=== PATIENT | female | born 1965 | race Two or more races ===

== ENCOUNTER 2017-11-09 10:13 | Inpatient (IN) | payer OTHER ==
[~2017-11-09] VITALS: Ht 160 cm; Wt 88.0 kg
--- NOTE | 2017-11-09 13:48 | NUR ---
REPORT FROM CATALINO BARAJAS E.D. AT THIS TIME.
--- NOTE | 2017-11-09 14:00 | NUR ---
PT ARRIVED TO ROOM 112. SHE ALERT AND ORIENTED UNABLE TO SPEAK CLEARLY, HOWEVER IS ABLE TO VERBALIZE ANSWERS APPROPRIATELY. PT REPORTS NO PAIN. PT UNABLE TO COUGH AND CLEAR SECREATIONS. SUCTION AT BEDSIDE TO ASSIST
--- NOTE | 2017-11-09 16:17 | NUR ---
PT EDUCATION PACKET GIVEN AND WENT OVER WITH DAUGHTER BRUCE IN PT ROOM. FAMILY ASKED STAFF TO TRY TO RESTRICT VISITORS LIST OF ACCEPTABLE VISITORS ON CHART. FAMILY IS CONCERNED ABOUT VISITORS NOT ON THE LIST MIGHT TRY TO BRING ILLEGAL DRUGS INTO PT. SIGN PLACED ON PT DOOR FOR ALL VISITORS TO CHECK IN AT NURSES STATION. PT RESTING QUIETLY IN BED AT THIS TIME. RR 20 BPM OXYGEN SATURATION 95% NO DISTRESS NOTED PT APPEARS TO BE SLEEPING.
--- NOTE | 2017-11-09 17:41 | NUR ---
PT ADMITTED FROM E.D. AT 1400 THIS AFTERNOON. SHE IS VERY WEAK OF LEFT SIDE. TWO PERSON TRANSFERED FROM [facility] TO HOSPITAL BED, YINAELLEN, WOULD SUGGEST THREE PERSON OR ZENAIDA. PT HAS FELIZ SHE IS ALERT AND ORIENTED DIFFICULTY SPEAKING BUT UNDERSTANDABLE. SHE HAS HAD MULTIPLE FAMILY MEMBERS VISITNG AND HAS A LIST PROVIDED BY DAUGHTER BRUCE OF THE PEOPLE THEY WOULD LIKE TO BE ALLOWED TO VISIT DUE TO HYSTORY OF DRUG USE. PT IS COOPERATIVE WITH CARE.
--- NOTE | 2017-11-09 18:33 | NUR ---
ACCU CHECK AT THIS TIME, DUE TO PT REPORTS FEELING TO HOT. DIAPHORETIC MILDLY. ACCUCHECK 289 READING.
--- NOTE | 2017-11-09 19:10 | NUR ---
BEDSIDE REPORT RECEIVED FROM JENN BIGGS. PT AWAKENS WITH FAMILY VOICE, RNS ENTERING ROOM. HOB ELEVATED. IVF INFUSING WNL. SPO2 96% ON RA, HR 73. CONT PULSE OX ON. PT ABLE TO LIFT LEFT LEG, MOVE FINGERS ON LEFT HAND, WEAKNESS NOTED. PT SPEECH GARBLED. CALL LIGHT IN REACH. FAMILY IN ROOM.
--- NOTE | 2017-11-09 20:48 | NUR ---
PT'S MOTHER LEFT FOR THE EVENING AND ASKED THAT HER HEAT IS TURNED UP IN THE ROOM. ADVISED HER THAT I WOULD TURN IT UP AND LET HER RN KNOW THAT SHE LEFT AND WOULD LIKE TO GET READY FOR BED.
--- NOTE | 2017-11-09 21:30 | NUR ---
PT ASSESSMENT COMPLETE. CBG 172, SS INSULIN ADMINISTERED. RT MANUEL IN ROOM, PT ABLE TO USE IS WITH PROMPTING TO 750 ML BEST EFFORT. LUNGS COARSE THROUGHOUT ALL LOBES, PT COUGHING AFTER SUCTION BY RT, CLEAR DISCHARGE SUCTIONED. SATURATIONS WNL, CONT. PULSE OX IN PLACE. HOB ELEVATED. FELIZ CARE COMPLETE, FELIZ DRAINING DARK YELLOW URINE. PT ASSISTED TO REPOSITION WITH SHEET ROCK LAYER ROSANGELA ASSIST. LEFT FACIAL DROOP NOTED, PT UNABLE TO LIFT LEFT ARM, ABLE TO MOVE FINGERS, WEAKNESS NOTED. LEFT LEG WEAK, PT ABLE TO LIFT LEG. PT HAS CALL LIGHT IN REACH. LIGHTS OFF IN ROOM.
--- NOTE | 2017-11-09 23:40 | NUR ---
PT APPEARS TO BE SLEEPING, AWAKENS EASILY TO VOICE. NEW BAG IVF INFUSING WNL. PT BREATHING IS NON-LABORED, SATURATIONS WNL ON CONT. PULSE OX. CALL LIGHT IN REACH. LIGHTS OFF IN ROOM.
--- NOTE | 2017-11-10 02:19 | NUR ---
VITALS AND I&OS DONE AND CHARTED. REPOSITIONED HER WITH JENN JENNINGS. BEDSIDE TABLE AND CALL LIGHT WITHIN REACH.
--- NOTE | 2017-11-10 02:30 | NUR ---
IN PT ROOM FOR ACCU CHECK, CBG 207, SS INSULIN ADMINISTERED. PTS LUNGS COARSE THROUGHOUT. SUCTION COMPLETED BY RN. PT UNABLE TO COUGH AT THIS TIME, THIN WHITE PHLEGM SUCTIONED. IVF INFUSING WNL. FELIZ CATHETER EMPTIED. PT REPOSITIONED IN BED TO RIGHT SIDE, HOB ELEVATED. CALL LIGHT IN REACH.
--- NOTE | 2017-11-10 02:30 | NUR ---
PHONE CALL TO , NOTIFIED OF URINE OUTPUT, NO NEW ORDERS PLACED AT THIS TIME.
--- NOTE | 2017-11-10 04:21 | NUR ---
CHECKED ON PT, EYES CLOSED, HOB ELEVATED, SPO2 95% ON RA, PT SNORING, HR 71 ON TELE 1. IVF INFUSING.
--- NOTE | 2017-11-10 05:50 | EKG ---
[facility] [address] [place], [place] [address] Signed Normal sinus rhythm Left axis deviation Abnormal ECG No previous ECGs available Confirmed by ZACH MOSES MD ([id number]) on 11/10/2017 5:50:22 AM Electronically Signed By: ZACH MOSES MD 11/10/17 0550 PATIENT NAME: SILVANA VICTOR Electrocardiogram DATE OF : 61 PHYSICIAN: ZACH MOSES MD REPORT #: [id number] REPORT IS CONFIDENTIAL AND NOT TO BE RELEASED WITHOUT AUTHORIZATION
--- NOTE | 2017-11-10 05:55 | NUR ---
IN ROOM TO CHECK ON PT, IVF INFUSING WNL. PT ASSISTED TO REPOSITION. FELIZ DRAINING CLOUDY YELLOW URINE. CALL LIGHT IN REACH, PT DROWSY, AWAKENS TO VOICE AND BACK TO SLEEP.
--- NOTE | 2017-11-10 06:03 | NUR ---
PT DROWSY THROUGHOUT SHIFT, SATURATIONS WNL ON ROOM AIR, CONT. PULSE OXIMETER. PT ON TELE 1. LUNGS COARSE THROUGHOUT, PRN SUCTIONING, PT USING IS. SLIGHT LEFT SIDE FACIAL DROOP, LEFT SIDED WEAKNESS. FELIZ CATHETER DRAINING OLIGURIA. IVF INFUSING WNL. ACCU CHECKS Q6H. TO HAVE ST FOLLOW STUDY. NPO.
--- NOTE | 2017-11-10 06:33 | NUR ---
VITALS AND I&OS DONE AND CHARTED. BEDSIDE TABLE AND CALL LIGHT WITHIN REACH. REPOSITIONED PT IN BED WITH THE HELP OF JENN JENNINGS.
--- NOTE | 2017-11-10 07:46 | NUR ---
RECIEVED BEDSIDE REPORT FROM JENN MAHAJAN. PT SLEEPING SOUNDLY, BREATHING EVEN AND UNLABORED. NS RUNNING AT 125ML/HR. O2 SATS IN MID-90S.
--- NOTE | 2017-11-10 08:24 | NUR ---
MED PASS COMPLETE. PT STATES NO NEEDS AT THIS TIME. PT DECLINED SUCTIONING AT HIS TIME. PT ABLE TO WIGGLE FINGERS ON LEFT HAND, UNABLE TO HOLD OR LIFT LEFT ARM UP. ABLE TO LEFT AND HOLD LEFT LEG AND WIGGLE TOES ON LEFT FOOT. PT SPEECH SLIGHTLY GARBLED, BUT UNDERSTANDABLE. PT SHAKES HEAD NEEDED.
--- NOTE | 2017-11-10 11:06 | NUR ---
PT REPOSITIONED. FAMILY AT BEDSIDE. FAMILY HAD QUESTIONS RE: NUTRITION AND BM. RN EXPLAINED SHE IS GETTING WHAT SHE NEEDS VIA IV AT THIS TIME AND BECAUSE OF LOW INTAKE THERE WILL NOT BE MUCH OUTPUT.
--- NOTE | 2017-11-10 11:06 | NUR ---
PATIENT RESTING IN BED, EYES CLOSED. FAMILY IN ROOM. CALL LIGHT IN REACH. NO OTHER NEEDS AT THIS TIME.
--- NOTE | 2017-11-10 12:31 | NUR ---
PT SLEEPING, WAKES TO VOICE. ANSWERS QUESTIONS APROPRIATELY, HOWEVER DOES NOT WANT TO SUCTION. ST JEREMÍAS IN PROGRESS AT THIS TIME. FAMILY IN ROOM.
--- NOTE | 2017-11-10 12:46 | NUR ---
PT RESTING IN BED, OPENING EYES TO MY VOICE. FAMILY IN , INVITED ME IN. I WENT TO PT, SPEECH WAS DIFFICULT, BUT UNDERSTANDABLE. ASKED HOW HER PAIN IS SHE KNODDED AND FAMILY RESPONDED THAT THEY FELT SHE WAS NOT IN PAIN AT THE MOMENT. FAMILY REQUESTED PRAYER, PT AGREED. I VOICED A PRAYER AND VISITED WITH FAMILY. THEY ATTEND [facility]. INSPECTOR BALL POINTS HAS BEEN NOTIFIED. THEY ASKED IF I COULD JUST BE THEIR INSPECTOR BALL POINTS WHILE HERE-OF COURSE. PT'S MOTHER HAS HAD A STROKE, AND STILL HAS RESIDULE EFFECTS. FAMILY THANKED ME FOR STOPPING, WILL CONTINUE TO FOLLOW NEEDED
--- NOTE | 2017-11-10 12:56 | NUR ---
SPEECH THERAPY ADVISED PT WILL NEED MDSS. IMAGING CAN DO THE STUDY AT 1400.
--- NOTE | 2017-11-10 13:51 | NUR ---
PATIENT RESTING IN BED, EYES CLOSED. PHYSICAL THERAPY IN ROOM. CALL LIGHT IN REACH. NO OTHER NEEDS AT THIS TIME.
--- NOTE | 2017-11-10 13:57 | NUR ---
NOTIFIED DR MOSES OF HTN-OUTSIDE PARAMETERS. SHE IS OK WITH PERMISSIVE HTN DUE TO THE CVA.
--- NOTE | 2017-11-10 14:37 | NUR ---
PT OFF FLOOR TO [facility]. TRANSFERED TO "PINK [facility]AIR" STAND PIVIOT WITH PHYSICAL THERAPY. PT TRANSFERED VERY WELL. PHYSICAL THREAPY RECOMMENDS BRACING PTS LEFT KNEE WITH TRANSFERS AND PLACING A BED ALARM. BED CHANGED WITH PT OUT.
--- NOTE | 2017-11-10 14:42 | NUR ---
PT OFF UNIT FOR MBSS. WILL DO ACCUCHECK WHEN PT RETURNS TO FLOOR.
--- NOTE | 2017-11-10 15:15 | NUR ---
RN SPOKE WITH SPEECH THERAPY. PT IS TO STAY NPO AT THIS TIME. ACCORDING TO RADIOLOGY, PT DID ASPERATE SIGNIFICANTLY. DUE TO THE HOLIDAY THIS WEEK, IMAGING IS UNABLE TO DO A FOLLOW UP STUDY THIS WEEK. SPEECH THERAPY WOULD LIKE TO FOLLOW UP WITH DR MOSES TO DISCUSS OPTIONS.
--- NOTE | 2017-11-10 15:28 | NUR ---
CCU RNDANIEL CALLED. PT IS SHOWING PERIODS OF BRADYCARDIA ON TELE, DOWN TO THE 40S, THEN BACK UP. RN ASSESSED PT, PULSE WITHIN LIMITS. O2 IN LOW 90S. REPLACED O2 AT 2L TO MAINTAIN O2 LEVELS IN MID-90S.
--- NOTE | 2017-11-10 16:10 | NUR ---
THIS DIRECTOR OF EMPLOYER SERVICES ASSISTED PATIENT WITH BED BATH. PERICARE AND SKINCARE PERFORMED. PATIENT RESTING THROUGH MOST OF BED BATH, BUT AWAKES WHEN ASKED TO ROLL OR TURN. PATIENT HAS SOME DISCHARGE IN PERIAREA, RN NOTIFIED. PATIENT REPOSITIONED IN BED, AND SAT UP FOR ORAL CARE. PATIENT PERFORMED ORAL CARE WITH MINIMAL ASSISTANCE. PATIENT WASHED HANDS AND FACE WITH WARM WASH CLOTH. PATIENT RESTING IN BED, EYES NOW CLOSED. CALL LIGHT IN REACH. BED ALARM ON, NO OTHER NEEDS AT THIS TIME.
[2017-11-10] MEDS ORDERED: LIPITOR20 MG PO (16:46)
[2017-11-10] MEDS ORDERED: DIALYVITE V5000 UNIT PO (16:48)
[2017-11-10] MEDS ORDERED: VITAMIN B-12500 MCG PT (16:49)
[2017-11-10] MEDS ORDERED: ALLEGRA ALLERG180 MG PT (16:50)
[2017-11-10] MEDS ORDERED: FLONASE ALLERG9.9 ML NAS (16:56)
[2017-11-10] MEDS ORDERED: GLIPIZIDE XL10 MG PO (16:57)
[2017-11-10] MEDS ORDERED: AVAPRO150 MG PO (16:58)
--- NOTE | 2017-11-10 17:13 | NUR ---
Medications reconciled with Ольга chart note, visit October 01, 2017. Patient poor historian
--- NOTE | 2017-11-10 18:07 | NUR ---
RN NOTIFIED OF BLOOD PRESSURE OUT OF NORMAL LIMITS.
--- NOTE | 2017-11-10 18:20 | NUR ---
PT HAD MOD. BARIUM SWALLOW STUDY THIS SHIFT. STUDY SHOWED MAJOR ASPERATION WHILE SWALLOWING. CONTINUE NPO STATUS AT THIS TIME PER SPEECH THERAPY. PHYSICAL THERAPY WORKED WITH PT X2. PT ABLE TO STAND PIVOT WITH [address] AND OT ALSO WORKED WITH PT. PRN SUCTION NEEDED, PT DECLINES AT TIMES, BUT OTHER TIMES WILL ALLOW. PT WILL SPEAK, SPEECH IS SLIGHTLY GARBLED BUT UNDERSTANDABLE. SMALL MOVEMENTS IN LEFT FINGERS. PT WAS ABLE TO HOLD LEFT LEG AGAINST GRAVITY FOR SHORT PERIODS. FAMILY REPORTS PT IS "COMING DOWN" AND WILL NOT RESPOND EXPECTED.
--- NOTE | 2017-11-10 19:07 | NUR ---
IN ROOM FOR REPORT. PT IS SLEEPING BUT AWOKE MOMENTARILY TO SAY HI. CALL LIGHT IS WITHIN REACH.
--- NOTE | 2017-11-10 21:27 | NUR ---
IN ROOM TO CHECK BG AND ADMINISTER INSLUIN. ALSO ASSESSED PT. SHE IS DROWSY BUT AROUSABLE. SHE MOMENTARILY OPENED HER EYES BUT KEPT THEM CLOSED WHILE THIS RN ASKED HER QUESTIONS. LEFT SIDE REMAINS WEAK BUT SENSATION IS INTACT. SHE DID NOT LIFT HER LEFT ARM WHEN ASKED BUT WAS ABLE TO LIFT LEFT HEEL OFF BED FOR A SECOND OR TWO. RT SIDE MOVEMENT IS GOOD. SHE DENIES PAIN. HER LUNGS ARE COARSE AND SHE DENIES SUCTION. REMINDED HER TO USE IT OR CALL IF SHE NEEDS HELP. CALL LIGHT IS WITHIN REACH.
--- NOTE | 2017-11-10 22:53 | NUR ---
V/S AND I/O DONE AND CHARTED.
--- NOTE | 2017-11-10 23:24 | NUR ---
PT IS RESTING WITH EYES CLOSED, NC WAS OFF. REPOSITIONED AND SHE WOKE, SHE REQUESTED HEAT BE TURNED DOWN. SHE DENIES FURTHER NEEDS AT THIS TIME.
--- NOTE | 2017-11-11 01:23 | NUR ---
PT IS RESTING WITH EYES CLOSED, RESPIRATIONS ARE EVEN AND NONLABORED. CALL LIGHT IS WITHIN REACH.
--- NOTE | 2017-11-11 02:33 | NUR ---
IN ROOM TO ADMINISTER INSULIN FOR BG OF 179. WOKE PT AND SHE DENIES NEEDS AT THIS TIME. CALL LIGHT IS WITHIN REACH.
--- NOTE | 2017-11-11 04:52 | NUR ---
PT IS RESTING WITH EYES CLOSED, RESPIRATIONS ARE EVEN AND NONLABORED ON 1.5L NC.CALL LIGHT IS WITHIN REACH.
--- NOTE | 2017-11-11 06:30 | NUR ---
PT IS RESTING WITH EYES CLOSED, RESPIRATIONS ARE EVEN AND NONLABORED. CALL LIGHT IS WITHIN REACH.
--- NOTE | 2017-11-11 06:51 | NUR ---
PT REQUESTED BLANKETS BE REMOVED AND SAID SHE IS HOT. GAVE COOL WASHCLOTH FOR FORHEAD AND BOOSTED HER IN BED. PT DENIES NEEDS AT THIS TIME.
--- NOTE | 2017-11-11 08:27 | NUR ---
PT RESTING IN BED ALERT TO NAME. RR 20. NO REQUEST. REPORTS PAIN 0/10
--- NOTE | 2017-11-11 09:00 | NUR ---
PATIENT IN BED, EYES CLOSED, WASHCLOTH ON FOREHEAD. BOARD UPDATED, CALL LIGHT IN REACH
--- NOTE | 2017-11-11 09:10 | NUR ---
PATIENT AWAKE IN BED. DISCUSSED REHAB POSSIBILITIES IN AREA INCLUDING INPATIENT STR[facility]KE REHAB AT [place]. PATIENT STATES SHE PREFERS [facility]. EXPLAINED I WILL SEND PACKETS AND WILL LET HER KNOW HER OPTIONS. PATIENTS SPEACH IS SLURRED, BUT UNDERSTANDABLE.
--- NOTE | 2017-11-11 10:13 | NUR ---
PATIENT IN BED, EYES CLOSED. VITALS AND I/OS CHARTED. PATIENT HAS GOOSE BUMPES, BUT REFUSED WARM BLANKET. FACE WASHED.CALL LIGHT IN REACH
--- NOTE | 2017-11-11 10:30 | NUR ---
PHYSICAL THERAPY WORKING WITH PT TODAY, PT HAS BEEN UP TO RECLINER AND THEN BACK TO BED TWO PERSON HEAVY ASSIST.
--- NOTE | 2017-11-11 10:33 | NUR ---
RN DISCUSSED WITH ANOOP STOREROOM ATTENDANT PLAN FOR STROKE REHAB. ANOOP SAID PT VERBALIZED SHE DID NOT WANT TO GO OUT OF MARG[facility].
--- NOTE | 2017-11-11 12:26 | NUR ---
CLINICALS SENT TO [facility] (FAX). FAX CONFIRMATION RECEIVED. SPOKE WITH NEELAM AT FACILITY [phone]. SHE WILL REVIEW CHART. FAXED CLINICALS ALSO TO MIKE AT [facility] [phone]. FAX CONFIRMATION RECEIVED. SPOKE WITH HER BY PHONE. SHE WILL REVIEW CHART.
--- NOTE | 2017-11-11 13:32 | NUR ---
PATIENT AWAKE IN BED, MOTHER IN ROOM. CLAY STAIN MIXER ALLYSON ASSISTED THIS CLAY STAIN MIXER IN REPOSITIONING PATIENT UP IN BED. VITALS AND I/OS CHARTED. FELIZ EMPTIED. CALL LIGHT IN REACH
--- NOTE | 2017-11-11 14:30 | NUR ---
SPEECH THERAPY IN PT ROOM. PT'S MOTHER CATALINO AT BEDSIDE. ANOOP DISCHARGE PLANNING DISCUSSED REHAB, WBT AND [facility]. PT REPORTS NO PAIN.
--- NOTE | 2017-11-11 15:32 | NUR ---
REPORT FROM RAKESH BARAJAS.
--- NOTE | 2017-11-11 15:42 | NUR ---
ST ARRIVED IN ROOM WITH PATIENT FULLY RECLINE SUPINE IN BED ASLEEP WITH MOTHER PRESENT IN ROOM. SILVANA WAS EASILY AWOKEN AND AGREEABLE TO TX. PT WAS MOVED TO SITTING POSITION WITH HOB ELEVATED TO 60 DEGREES FOR SWALLOW TRIALS. ORAL CARE COMPLETED. PT PRESENTS WITH 3-5ML SPOONFULS OF LEVEL 2 MILDLY THICK LIQUID X11. SUSPECTED ASPIRATION ON 2 TRIALS BASED ON CORRELATION WITH STRONG COUGH REFLEX ON 2 TRIALS, ONE DURING SWALLOW AND ONE 4-5 SECONDS AFTER. SILVANA EXHIBITED STRONG COUGH REFLEX DURING ASPIRATION DURING MBSS YESTERDAY BUT NOT DURING PENETRATION EVENTS. INCREASED BOLUS MANIPULATION AND A-P TRANSIT OBSERVED. SWALLOW ON COUNTDOWN X3; SILVANA EXHIBITED DIFFICULTY W/O BOLUS. INCREASED STRENGTH OF GLOTTAL CLOSURE ON SPONATENOUS COUGH COMPARED TO YESTERDAY, PERCEPTUALLY JUDGED BY THIS CLINICIAN. SILVANA BECAME FATIGUED AND REQUESTED TO LIE DOWN TO REST. PROVIDED EDU RE: HOB ELEVATION FOLLOWING PO TRIALS, SILVANA AND FAMILY EXPRESSED UNDERSTANDING AND WERE COMPLIANT WITH WAITING. PROVIDED EDU RE: TURNING POINT.
--- NOTE | 2017-11-11 15:52 | NUR ---
ASSISTED P/T IN REPOSITIONING PATIENT ONTO RIGHT SIDE. MOTHER IN ROOM. CALL LIGHT IN REACH
--- NOTE | 2017-11-11 17:36 | NUR ---
PATIENT AWAKE IN BED, VISITOR IN ROOM. VITALS AND I/OS CHARTED. FELIZ EMPTIED. PATEINT WAS ABLE TO HAVE A PRODUCTIVE COUGH AND THIS FURRIER DESIGNER USED THE YAUNKER ON HER. PATIENT USED SWAB/WATER TO WET MOUTH CALL LIGHT IN REACH NO OTHER NEEDS
--- NOTE | 2017-11-11 18:37 | NUR ---
PT HAS BEEN UP TO RECLINER WITH PHYSICAL THERAPY, HAS WORKED WITH OCCUPATIONAL THERAPY AND SPEECH THERAPY. NO NEW DEFICITS WITH NEURO CHECKS. SHE REMAINS NPO PER S.T., PT AND HER SISTER DISCUSSED AND AGREED TO PLACEING PEG-TUBE, FEEDING TUBE. PT REPORTS NO PAIN, CMS INTACT. NIHS SCALE OF 9 THIS AM.
--- NOTE | 2017-11-11 20:10 | NUR ---
RECEIVED REPORT FROM DAY SHIFT RN. PATIENT REPOSITIONED IN BED. PATIENT DENIES ANY NEEDS AT THIS TIME. CALL LIGHT IN REACH.
--- NOTE | 2017-11-11 21:25 | NUR ---
PATIENT BP ELEVATED. MD NOTIFIED NO NEW ORDERS AT THIS TIME.
--- NOTE | 2017-11-11 22:01 | NUR ---
PATIENTS BLOOD SUGAR TAKEN AND WNL. PATIENT REPOSITIONED IN BED. VIRTUAL OFFICE ASSISTANT IN ROOM VITALS TAKEN. FELIZ EMPTIED AND OUTPUT IS QS. PATIENTS MOUTH SUCTIONED. ORAL CARE PERFORMED. PATIENT DENIES ANY NEEDS. PATIENTS SPEECH IS QUIET AND SLIGHTLY GARBLED BUT IS UNDERSTANDABLE. PATIENTS CALL LIGHT IS IN RIGHT HAND. STAT LOCK REPLACED.
--- NOTE | 2017-11-11 23:25 | NUR ---
PATIENT CALLED. PATIENT IS ANXIOUS AND RESTLESS. PATIENT GIVEN PRN ANXIETY MEDICATION. PATIENT REPOSTIIONED. NO FURTHER NEEDS NOTED. CALL LIGHT IN REACH.
--- NOTE | 2017-11-12 01:24 | NUR ---
PATIENT REPOSITIONED. PATIENTS MOUTH SUCTIONED. PATIENT HAS PULLED AT HER FELIZ AND NOW HAS SLIGHT BLEEDING. LAURENT AND FELIZ CARE PERFORMED. PATIENT EDUCATED ON NOT PULLING ON FELIZ. PATIENT VERBALIZED UNDERSTANDING. NO FURTHER NEEDS NOTED. CALL LIGHT IN REACH.
--- NOTE | 2017-11-12 01:56 | NUR ---
PATIENT ASSESMENT COMPLETED. 0200 BS TAKEN AND IS WNL, NO SS NEEDED. PATIENTS VITALS TAKEN AND RECORDED BY PRODUCT MARKETING PROGRAMS MANAGER. PATIENT REMAINS ON PULSE OX. PATIENT DENIES ANY FURTHER NEEDS CALL LIGHT IN REACH.
--- NOTE | 2017-11-12 03:11 | NUR ---
PATIENT REPOSITIONED. MOUTH SUCTIONED. PULSE OX READINGS ARE WNL. PATIENT AWOKE BRIEFLY. PATIENT DENIES ANY NEEDS. CALL LIGHT IN REACH.
--- NOTE | 2017-11-12 05:15 | NUR ---
PATIENT RESTED WELL THROUGHOUT THE SHIFT. LAMONTEALMAZ IS NPO AT THIS TIME. PATIENT IS ON A PULSE OX. CLARA IS WORKING WITH PT, OT, AND ST. PATIENT HAS FELIZ IN PLACE AND OUPUT IS QS. PATINE IS LEFT ARM RESTRICTED. PATEITN IS ON ASPIRATIONS PRECAUTIONS. PATIEN NEEDS SUCTION PRN. PATIEN TRECEIVED PRN ANXIETY MEDICATION X1. PATIENT HAS LEFT SIDED WEAKNESS. PATIENT IS AAOX3 AND USES CALL LIGHT APPROPRIATLEY. PATIENTS SPEECH IS LOW AND GARBLED AT TIMES, BUT ABLE TO UNDERSTAND.
--- NOTE | 2017-11-12 05:34 | NUR ---
PATIENTS VITALS TAKEN AND RECORDED BY HOME THEATER EXPERIENCE EXPERT. PATIENTS BEDDING CHANGED PATIENT HAD A SMALL AMOUNT OF BLOODY DRAINAGE ON SHEETS FROM PULLING AT FELIZ. PATIENT REPOSTIONED IN BED. PATIENT SUCTIONED, ORAL CARE PERFORMED, AND FACE WASHED. PATIENT TOLERATED ACTIVITY WELL. PATIENT DENIES ANY NEEDS AT THIS TIME. HOB ELEVATED. PATIENTS CALL LIGHT IN REACH.
--- NOTE | 2017-11-12 08:20 | NUR ---
PULSE OXIMETRY ALARM NOTED. RN TO ROOM TO ASSESS PT. PT OXYGEN SATURATIONS 71% ON ROOM. PT SUCTIONED, ENCOURAGED TO COUGH AND DEEP BREATH, PT RETURNED TO 94% IMMEDIATE RECOVERY
--- NOTE | 2017-11-12 09:17 | NUR ---
lovenox held as per Dr Titus's orders. Pt repositioned up 45 degrees in bed. oral suctioning done again, cont pulse ox 95%. Visiting with family, no c/o cp or sob
--- NOTE | 2017-11-12 09:42 | NUR ---
PATIENT UP IN BED, VISITORS AT BEDSIDE. VITALS AND I/OS CHARTED. FELIZ EMPTIED. THIS MATERIAL FLOW ENGINEER WASHED PATIENTS FACE AND HANDS AND GAVE HER A SWAB TO MISTEN MOUTH. PATIENT AGREED TO BEDBATH THIS AFTERNOON. CALL LIGHT IN REACH
--- NOTE | 2017-11-12 13:43 | NUR ---
PT BACK TO BED AFTER BEING INCHAIR, ONE PERSON ASSIST/GAIT BELT, RT TRANFERRING/PIVOT FROM CHAIR TO BED AT THIS TIME WITH RT HELP PT BACK TO BED, TOLERATED WELL
--- NOTE | 2017-11-12 13:44 | NUR ---
PATIENT IN BED, VITALS AND I/OS CHARTED. FELIZ EMPTIED. BP SLIGHTLY ELEVATED, RN HEYDI NOTIFIED. THIS AUTOMOTIVE PARTS COUNTER PERSON TOOK IT 2X CALL LIGHT IN REACH
--- NOTE | 2017-11-12 14:30 | NUR ---
PATIENT CALLED TO BE REPOSITIONED. CALL LIGHT IN REACH
--- NOTE | 2017-11-12 15:40 | NUR ---
PERMIT SIGNED BY PT . DR JAY IN ROOM EARLIER DISCUSSED PEG PLACMENT RISKS AND BENEFITS TO BOTH PT AND HER FAMILY, BOTH STATED UNDERSTANDING.
--- NOTE | 2017-11-12 17:36 | NUR ---
pt has been up in chair and did Pivot transfer with PT using gait belt, fww and one assist. Did well. Continues to have left sided weakness worse on right arm than leg. continues to have moist, non prod. cough, unable to swallow secreations, uses Yaunker to suction secretions self, doing well. Continues on NPO status. Seen by Dr Kuo, Permit for PEG tube placement signed. IVF infusing w/o problems. Had a formed bm. Showered with assist, red periarea lotion to area, f/c intact, care done. Bed alarm on. Pt currently sitting up in chair 45o, watchingt TV.
--- NOTE | 2017-11-12 17:48 | NUR ---
PATIENT SITTING UP IN BED WATCHING IPAD. VITALS AND I/OS CHARTED. FELIZ EMPTIED CALL LIGHT IN REACH
--- NOTE | 2017-11-12 19:54 | NUR ---
RECEIVED REPORT FROM DAY SHIFT RN. PATIENT IS RESTING IN BED VISISTING WITH FAMILY. NO NEEDS NOTED. CALL LIGHT IN REACH.
--- NOTE | 2017-11-12 20:26 | NUR ---
VITALS DONE AND CHARTED. REPOSITIONED PT IN BED. BEDSIDE TABLE AND CALL LIGHT WITHIN REACH.
--- NOTE | 2017-11-12 21:15 | NUR ---
PATIENT ASSESMENT COMPLETED. PATIENT REPOSTIONED IN BED. PATIENT DENIES ANY DISCOMFORT. PATIENT SUCTION AND ORAL CARE PROVIDED. RECORD CHANGER TESTER IN ROOM AND VITALS TAKEN AND RECORDED. BS WNL, NO SS ADMINISTERED PER ORDER. PATIENTS FELIZ EMPTIED. PATIENT DENIES ANY FURTHER NEEDS. IV FLUIDS INFUSING. PULSE OX IN PLACE. PATIENT ASSISTED WITH TABLET TO WATCH [employer]. SUCTION AND CALL LIGHT IN REACH.
--- NOTE | 2017-11-12 23:05 | NUR ---
PATIENT CALLED AND REQUESTED TO BE REPOSITIONED SHE HAD SLID DOWN IN BED. PATIENT REPOSITIONED. NO FURTHER NEEDS NOTED. PULSE OX READINGS ARE WNL. CALL LIGHT IN REACH.
--- NOTE | 2017-11-13 00:43 | NUR ---
PATIENT REPOSTIONED. PATIENT SUCTION AND FACE WASHED. NOFURTHER NEEDS NOTED. CALL LIGHT IN REACH.
--- NOTE | 2017-11-13 02:12 | NUR ---
PATIENTS BS CHECKED AND IS WNL, NO SS GIVEN PER ORDER. PATIENT REPOSITIONED IN BED. PATIENT TOLERATED ACTIVITY WELL. CAPTAIN CANNERY TENDER IN ROOM AND VITALS TAKEN AND RECORDED. PATIENTS FELIZ EMPTIED AND OUTPUT IS QS. PATIENTS CALL LIGHT IS WITHIN REACH. AND SUCTION YOUNKER IN REACH. NO FURTHER NEEDS NOTED.
--- NOTE | 2017-11-13 02:28 | NUR ---
VITALS AND I&OS DONE AND CHARTED. REPOSITIONED HER WITH HELP FROM HER RN JAKE. BEDSIDE TABLE AND CALL LIGHT WITHIN REACH.
--- NOTE | 2017-11-13 04:50 | NUR ---
PATIENT RESTED WELL THROUGHOUT THE SHIFT. PATIENT IS NPO AT THIS TIME. PATIENT IS ON A PULSE OX. PATIENT IS WORKING WITH PT, OT AND ST. FELIZ IN PLACE AND OUPUT IS QS. PATIENT IS LEFT ARM RESTRICTED. ASPIRACTION PRECAUSTIONS IN PLACE. NV SUCTIONING PATIENT HAS TROUBLE SWALLOWING. AAOX3 AND USES CALL LIGHT APPROPRIATLEY. PATIENTS SPEECH IS LOW AND SLURRED AT TIMES. PATIENT IS TURN Q2. BS'S WNL, NO SS NEEDED. PATIENT HAS SCDS IN PLACE.
--- NOTE | 2017-11-13 05:07 | NUR ---
VITALS AND I&OS DONE AND CHARTED. REPOSITIONED PT IN BED WITH HELP FROM JENN JOSEPH. BEDSIDE TABLE AND CALL LIGHT WITHIN REACH.
--- NOTE | 2017-11-13 05:42 | NUR ---
PATIENT REPOSITIONED IN BED. ORAL SUCITON PERFORMED. PATIENTS FACE WASHED. FELIZ CARE PERFORMED. PATIENTS VITALS TAKEN AND RECORDED BY MATHEMATICS DEPARTMENT CHAIR. FELIZ EMPTIED, OUPUT QS. PATIENT DENIES ANY NEEDS AT THIS TIME. CALL LIGHT IN REACH.
--- NOTE | 2017-11-13 07:10 | NUR ---
BEDSIDE HANDOFF REPORT RECEIVED FROM RECORD CHANGER ASSEMBLER RN. PT SLEEPING IN BED. CONTINUOUS PULSE OX 93-96% ON ROOM AIR. IV FLUIDS INFUSING. PT DENIES NEEDS AT THIS TIME.
--- NOTE | 2017-11-13 09:00 | NUR ---
PT RESTIGN IN BED. PT ON ROOM AIR, O2 SATS 93-95%, PT WITH APNIC EPISODES DESATS TO THE 50-70'S, QUICKLY RETURNS TO 90'S WITH STIMULATION. PT ALERT/ ORIENTED, SLURRED SPEECH. PT NPO, UNABLE TO MANAGE SECRETIONS, SUCTION AT BEDSIDE, PLAN FOR PEG TUBE TO BE PLACED TODAY. PT DENIES PAIN. BOWEL TONES ACTIVE, DENIES NAUSEA. PT WITH WEAKNESS TO LEFT SIDE, ABLE TO MOVE LEFT LEG, UNABLE TO MOVE, LEFT ARM, PT STATES FULL SENSATION IN EXTREMITIES. LEFT ARM ELEVATED ON PILLOW, FOAM TO LEFT HAND FOR CONTRACTURE. SCDS IN PLACE. ASPIRIN SUPPOSITORY GIVEN. PT WITH FELIZ CATH IN PLACE, DRAINING YELLOW URINE. IV FLUIDS INFUSING NS AT 125 ML/HR. PT REPOSITIONED TO LEFT SIDE. PT DENIES NEEDS AT THIS TIME.
--- NOTE | 2017-11-13 09:20 | NUR ---
NURSE AND I DID SURGICAL WIPE DOWN. CLEAN GOWN. LAYING ON HER LEFT SIDE.
--- NOTE | 2017-11-13 09:42 | NUR ---
SPOKE WITH [facility] [phone]. SHE STATES THEY ARE REVIEWING CHART TODAY. THEY WILL CALL WITH UPDATE.
--- NOTE | 2017-11-13 11:30 | NUR ---
IV INFUSION COMPLETED, NEW BAG NOW INFUSING. THERAPIST WORKING WITH PT. PT DENIES OTHER NEEDS AT THIS TIME.
--- NOTE | 2017-11-13 12:30 | NUR ---
PT AND MOTHER UPDATED ON SURGERY. PT DENIES NEEDS AT THIS TIME.
--- NOTE | 2017-11-13 12:57 | NUR ---
SPOKE WITH ADALI AT [facility]. SHE STATES THEY HAVE REVIEWED CHART AND FEEL THE PATIENT IS NOT READY FOR THEIR FACILITY AT THIS POINT. THEY WILL TAKE A LOOK AT UPDATED NOTES FRIDAY. UPDATED DR MOSES.
--- NOTE | 2017-11-13 13:01 | NUR ---
PT LAYING IN BED, RESPONDED TO MY VOICE. SPEECH APPEARS TO BE CLEARER, PT HELD MY HAND AND BEGAN TO WEEP. LET HER RELEASE FOR A MOMENT, HAD GOOD INTERACTION. PT MENTIONED THAT SHE IS TO HAVE FEEDING TUBE IN TODAY-SHE ALSO DID EXPRESS HER UNDERSTANDING. PT STATED THAT SHE IS "HUNGRY". SET GOAL TO HAVE A BIG PIZZA GREEN PARTY WHEN SHE CAN EAT AGAIN. NO PAIN, PT REQUESTED PRAYER, WILL FOLLOW NEEDED
--- NOTE | 2017-11-13 13:33 | NUR ---
PT RESTING IN BED. NOTIFIED OF SURGERY TIME. LR ON STRAIGHT TUBING TO RIGHT AC. PT ON ROOM AIR. CONSENT ON CHART. PT DENIES OTHER NEEDS AT THIS TIME.
--- NOTE | 2017-11-13 14:06 | NUR ---
PT TO OR WITH MAYANK BARAJAS.
--- NOTE | 2017-11-13 15:29 | NUR ---
PATIENT NOT YET RETURNED FROM PROCEDURE. WILL FOLOOW UP 11/14/17.
--- NOTE | 2017-11-13 15:51 | NUR ---
11/13/17 15[address] 1537-PATIENT ARRIVED TO PACU ON 10L MASK O2 SAT 97% PATIENT REACTIVE TO VOICE OPENS EYES. ST 1540-RT AT BEDSIDE SETTING UP BIPAP. PATIENT SUCTIONED NOT ABLE TO CLEAR SECRETIONS YELLOW/WHITE SECRETIONS. 1550-PATIENT ON CPAP RR 24. PATIENT SLEEPING AROUSES TO VERBAL STIMULI NODS HEAD NO WHEN ASKED IF IN PAIN DRESSING TO ABDOMEN CDI.
--- NOTE | 2017-11-13 16:58 | NUR ---
PT RECEIVED FROM PACU. PT TRANSFERED TO BED. PT DROWSY BUT EASILY AROUSABLE TO VOICE. PT DENIES PAIN. PARKS AND RECREATION WORKER TO BEDSIDE, PLACED PT ON CPAP, FIO2 30%, PEEP 10. PT BOWEL TONES HYPOACTIVE, PEG TUBE TO MIDLINE ABD, DRESSING CDI. PT WITH FELIZ IN PLACE, DRAINING LIGHT YELLOW URINE. PT WITH SCDS TO BLE. IV INFUSING NS AT 125 ML/HR. PT ALLOWED TO REST, DAUGHTER AT BEDSIDE.
--- NOTE | 2017-11-13 17:01 | NUR ---
ST ARRIVED AT 14:00 FOR TREATMENT; SILVANA WAS BEING TRANSFERRED TO OR FOR PEG PLACEMENT. ST ARRIVED AGAIN AT 1600 AND PT HAD YET TO RETURN FROM OR. WILL REVISIT TOMORROW.
--- NOTE | 2017-11-13 18:16 | NUR ---
PT WENT FOR PEG TUBE PLACEMENT TODAY. PT ON ROOM AIR, CPAP AT BEDSIDE, LUNG SOUNDS COARSE, SUCTION AT BEDSIDE, ASPIRATION PRECAUTIONS. PT CONTINUES TO BE NPO, ORDER FOR TAP WATER FLUSHES FOR PEG TUBE Q8 HR. PT WITH LEFT SIDED DEFICIT. IV FLUIDS INFUSING NS AT 125 ML/HR. PT WITH FELIZ DRAINIGN QS YELLOW URINE. AWAITING ACCEPTANCE TO REHAB.
--- NOTE | 2017-11-13 18:30 | NUR ---
PT RESTING IN BED. PT ON ROOM AIR O2 SATS 96%. PT DENIES PAIN. PEG TUBE DRESSIGN CDI. VSS. PT REPOSITIONED. PT DENIES OTHER NEEDS AT THIS TIME.
--- NOTE | 2017-11-13 19:20 | NUR ---
PATIENT REPOSITIONED IN BED. PATIENT COMOFORTABLE AND NOT IN NEED OF ANY PAIN MEDICATION AT THIS TIME. WILL BE BACK TO EVALUATE PATIENT FURTHER AFTER REPORT IS FINISHED.
--- NOTE | 2017-11-13 20:55 | NUR ---
VITALS DONE AND CHARTED. CALL LIGHT WITHIN REACH.
--- NOTE | 2017-11-13 21:59 | OR ---
[facility] [address], [place] [address] Signed DATE OF OPERATION: 11/13/2017 SURGEON: Estevan aJy MD PREOPERATIVE DIAGNOSES: 1. Recent acute cerebrovascular accident with severe dysphagia, aspiration and inability to swallow. 2. Multiple other medical problems. POSTOPERATIVE DIAGNOSES: 1. Recent acute cerebrovascular accident with severe dysphagia, aspiration and inability to swallow. 2. Multiple other medical problems. PROCEDURES: 1. Upper endoscopy. 2. PEG tube placement (percutaneous endoscopic gastrostomy placement). ANESTHESIA: General endotracheal, Karen Nielson CRNA. INDICATION: This 52-year-old obese woman has numerous medical problems including ongoing episodic methamphetamine use. She was admitted on November 09, 2017, with acute cerebrovascular accident, which has resulted in hemiplegia as well as significant dysarthria and aphasia. She is known to have aspiration type symptoms. An upper GI was performed three days ago that confirmed this. Though, she would like to eat orally, she is unable to do so safely at this time. On that basis, recommendation has been made for PEG tube or operative open gastrostomy as needed. It is hopeful that this will be a short term device as her rehabilitation and abilities to swallow improved. I have reviewed with the patient, her mother, and her sister the special hazards of gastrostomy placement, both endoscopic and open, including but not limited to bleeding, infection, misplacement of the device, migration of the device, abdominal wall infection and other unforeseen complications including complications related to sedation or anesthesia. She understands as does her family and they wished to proceed. FINDINGS: Given her significant hypopharyngeal secretion control problems selected by the drying supervisor, a general anesthetic be used. She is currently under a regimen of Electronically Signed By: ESTEVAN JAY MD 11/13/17 2159 PATIENT NAME: SILVANA VICTOR OPERATIVE REPORT DATE OF : 61 REPORT #: [id number] PHYSICIAN: ESTEVAN JAY MD PCP: [facility] REPORT IS CONFIDENTIAL AND NOT TO BE RELEASED WITHOUT AUTHORIZATION [facility] [address], [place] [address] Signed permissive hypertension and she did have variable of blood pressures throughout, none excessively high or low, however. She did have a fair amount of endotracheal secretions according to the drying supervisor. PEG tube was placed without problem. Endoscopic evaluation showed no sign of hiatal hernia particularly. The esophagus and stomach were otherwise normal as was the duodenum and pylorus. The device was placed at the junction of the antrum and the body of the stomach and was sewn to function well. The flanges fitted at 5-1/4 cm for future reference. DESCRIPTION OF PROCEDURE: The patient was brought to the operating room, given a general endotracheal anesthetic. She was noted to have a macroglossia. A fair amount of secretions were noted, these were suctioned free. In the supine position, a bite block was placed. An Olympus video upper endoscope was passed in the hypopharynx into the esophagus without problem throughout the esophagus that appeared normal. Scope was passed in the stomach, which was insufflated with air. Secretions were suctioned free. Rugal folds appeared normal. The antrum appeared normal as did the pylorus. The scope was passed through the pylorus into the duodenum, which was normal. Photographs were taken. The scope was withdrawn to the upper part of the stomach and transillumination undertaken of the abdominal wall. Good transillumination was noted indicating a clear passage for PEG tube placement. Abdominal wall palpation showed good impression on the stomach. The area of transillumination and abdominal palpation showing impression and the stomach was then marked and the area prepared with a chlorhexidine solution and draped sterilely. A transverse incision was made with an #11 blade. Using the enclosed needle device in the Bard PEG tube kit, the needle and obturator were passed to the abdominal wall under direct visualization into the stomach. The flexible wire and closed with the kit was then passed through the needle and using a snare, the tip of the wire was grasped and withdrawn through the mouth. The Bard PEG tube was then passed over the wire and guided down the oropharynx and out the abdominal wall and then withdrawn with all the passing the typical landmarks by sensation of the GE junction and so forth. Once the tube was fully out of the abdominal wall, the endoscope was reintroduced and examination undertaken and the urena of the PEG tube cinched snugly against the gastric wall under direct visualization. The enclosed flange was attached over the tube and additional Betadine gel was applied to the puncture site. The flange was secured to the skin and the tube drawn up in a snug but not excessively tight configuration. The flange was secured to the skin with interrupted 2-0 nylon suture and a heavy #1 nylon used to secure the flange around the tube itself. The tube was trimmed and the adapters applied to it. The scope was reoriented and irrigation through the end of the gastrostomy tube showed good function. Electronically Signed By: ESTEVAN JAY MD 11/13/17 2159 PATIENT NAME: SILVANA VICTOR OPERATIVE REPORT DATE OF : 61 REPORT #: [id number] PHYSICIAN: ESTEVAN JAY MD PCP: [facility] REPORT IS CONFIDENTIAL AND NOT TO BE RELEASED WITHOUT AUTHORIZATION [facility] [address] [address] Signed There appeared to be no complication, significant bleeding or other issues. Retroflexed view was undertaken as well and photographs were taken throughout. The scope was then removed. She was allowed to emerge from anesthesia, extubated, and transported to recovery room in good condition having suffered no known complication. MD BRIDGETTE Artis/SLAVAL /[id number] cc: Zach Titus MD Copies: ZACH TITUS MD ~ Electronically Signed By: ESTEVAN JAY MD 11/13/17 2159 PATIENT NAME: SILVANA VICTOR OPERATIVE REPORT DATE OF : 61 REPORT #: [id number] PHYSICIAN: ESTEVAN JAY MD PCP: [facility] REPORT IS CONFIDENTIAL AND NOT TO BE RELEASED WITHOUT AUTHORIZATION
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
--- NOTE | 2017-11-13 22:00 | NUR ---
PATIENT'S PEG TUBE FLUSHED WITHOUT DIFFICULTY WITH 50MLS OF WATER AND THEN RECLAMPED. CALL LIGHT IS IN REACH, PATIENT HAD NO NEEDS AT THIS TIME.
--- NOTE | 2017-11-13 23:18 | NUR ---
PATIENT RESTING QUIETLY, EYES CLOSED, RESPIRATIONS EVEN AND REGULAR ON CPAP. 02 SATS 98% AND HR ON PULSE OX 78BPM.
--- NOTE | 2017-11-14 00:45 | NUR ---
PATIENT CALLED TO SAY SHE WANTED TO TAAKE HER CPAP OFF BECAUSE IT WAS MAKING HER FEEL TO HOT. CPAP MASK REMOVED AND MACHINE PLACED IN STANDBY MODE. PATIENT REPOSITIONED AND PULLED UP IN BED. NOW RESTING QUIETLY. CALL LIGHT IN REACH.
--- NOTE | 2017-11-14 02:36 | NUR ---
PATIENT RESTING QUIETLY, BLOOD SUGAR 117, REMAINS OFF CPAP WITH SATS OF 97% ON ROOM AIR AND A PULSE OF 64. NO C/O PAIN AND CALL LIGHT IS IN REACH. HEAD OF BED ELEVATED AT 35%.
--- NOTE | 2017-11-14 04:01 | NUR ---
PATIENT SAT WAS ALARMIMG AT 85%. WOKE PATIENT AND SHE CAME BACK UP TO 97%. CALLED RT AND PATIENT WAS PLACED BACK ON CPAP. PATIENT PULLED UP IN BED, NEW CHUCKS AND DRAWSHEET PLACED, PATIENT POSITIONED TO RT SIDE. CALL LIGHT IN REACH. HEAD OF BED ELEVATED AND SCD'S ON.
--- NOTE | 2017-11-14 05:53 | NUR ---
VITALS AND I&OS DONE AND CHARTED. BEDSIDE TABLE AND CALL LIGHT WITHIN REACH.
--- NOTE | 2017-11-14 07:30 | NUR ---
REPORT RECEIVED FROM JENN OLIVER. PT AWAKE BUT DROWSY. REQUIRING EITHER CPAP OR 2LNC WHEN SLEEPING TO KEEP SATS ABOVE 90. PT DENIES PAIN OR CONCERNS. PEG TUBE FLUSHED 0600, NEXT 14OO IF FEEDINGS NOT STARTED.
--- NOTE | 2017-11-14 07:30 | NUR ---
PATIENT REPORT GIVEN TO JENN CHAUDHARI. PATIENT'S LUNG SOUNDS REMAIN COARSE THOUGHOUT WITH EX. WHEEZES BILAT UPPER LOBES AND DEMINISHED IN THE BILAT BASES. BOWEL TONES PRESENT. PEG TUBE FLUSHED WITH 50MLS WATER Q8HRS AT 2200 AND 0600 WITH NO PROBLEMS. PATIENT WORE HER CPAPA THE FIRST PART OF THE NIGHT AND THEN HAD US REMOVE IT, BECAUSE SHE SAID IT MADE HER FEEL TO HOT. HER SATS STARTED DROPPING TO THE MID 80'S THIS AM AND PATIENT PLACED BACK ON CPAP FOR THE LAST FEW HOURS OF THE SHIFT. PATIENT'S SATS STARTED DROPPING INTO THE 70'S RIGHT AFTER REPORT AND AND 2L/NC PLACED AND SATS INCREASED BACK UP TO 96% IV'S BOTH FLUSH WELL AND NS CONTINUES INFUSING AT 125MLS/HR IN THE RAC. PATIENT HAS ONLY NEEDED ORAL SUCTIONING X1 THIS SHIFT, BUT SUCTION REMAINS ON AT BEDSIDE IF NEEDED. PATIENT MEDICATED WITH 30MG TORADOL X1 AT THE FIRST PART OF THE SHIFT WHICH WAS EFFECTIVE FOR ABD PAIN AT BEG TUBE SITE.
--- NOTE | 2017-11-14 07:31 | NUR ---
PATIENT APPEARS TO BE SLEEPING, NASAL CANULA ON. BOARD UPDATED.
--- NOTE | 2017-11-14 08:56 | NUR ---
PLACED SUPP WITH PATIENCE MARRERO ASSISTANCE. PT TOLERATED WELL AND WAS ABLE TO MOSTLY ROLL ON OWN. REPOSITIONED FOR COMFORT. POWDER PLACED IN PANUS. PT CONTINUING TO REQUIRE 2LNC WHEN SLEEPING. BT DISTANCE BUT HEARD. LUNGS MOSTLY CLEAR WITH OCCASIONAL COARSE SOUND. PT DENIES CONCERNS.
--- NOTE | 2017-11-14 09:23 | NUR ---
SPOKE WITH PATIENT IN ROOM. DISCUSSED THAT SHE IS NOT READY FOR INPATIENT STROKE REHAB IN [place] AND SHE MAY NEED STAY AT [place] UNTIL SHE IS ABLE TO PARTICIPATE AT THAT LEVEL. PATIENT STATES UNDERSTANDING AND IS WILLING TO STAY AT [place]. UPDATED STAFF AND DR SINHA.
--- NOTE | 2017-11-14 09:52 | NUR ---
PATIENT IN BED, NASAL CANULA ON. VITALS AND I/OS CHARTED. FELIZ EMPTIED. GLYCERIN SWAB USED TO MOISTEN MOUTH. CALL LIGHT IN REACH
--- NOTE | 2017-11-14 10:46 | NUR ---
PT WORKING WITH PHYS. THER AND GLUE MILL OPERATOR. TOLERATING WELL AND SHOWING IMPROVEMENT FROM YESTERDAY. ASKED FOR SOMETHING FOR A HEADACHE. ADMINSTERED TORADOL.
--- NOTE | 2017-11-14 11:47 | NUR ---
PT ASSISTED THIS MEDICAL RECORDS TECHNICIAN IN GETTING PATIENT INTO SOWER CHAIR USING STAND A PIVOT TO THE RIGHT. PATIENT DID GREAT, WALKED TO BATHROOM DOORS USING WALKER BEFORE NEEDING TO REST. OT IN TO WATCH PATIENT SHAPOO HER OWN HAIR. PATIENT ASSISTED IN WASHING HER BODY. TEETH BRUSHED. 2 PERSON ASSIST BACK TO BED. WARM BLANKET GIVEN. CALL LIGHT IN REACH
--- NOTE | 2017-11-14 12:13 | NUR ---
PT BACK IN BED AFTER SHOWER. SLEEPING WITH OX IN PLACE. REATTACHED TO IVF.
--- NOTE | 2017-11-14 14:09 | NUR ---
VITALS AND I/OS CHARTED. FELIZ EMPTIED. JENN SCHRADER ASSISTED IN MOVING PATIENT UP IN HER BED. CALL LIGHT INREACH
--- NOTE | 2017-11-14 14:30 | NUR ---
UPDATED NOTES FAXED TO [facility] [phone]. FAX CONFIRMATION RECEIVED. ALSO SENT TO [facility] [phone]. FAX CONFIRMATION RECEIVED.
--- NOTE | 2017-11-14 14:44 | NUR ---
PT AWAKE AND WATCHING TV. SPEECH SEEMS TO BE IMPROVING THROUGHOUT DAY. STILL SLOW TO RESPOND BUT IS UNDERSTANDABLE MOST OF TIME. UNDERSTANDS WE WILL BE STARTING FEEDINGS SHORTLY.
--- NOTE | 2017-11-14 15:03 | NUR ---
STARTED TUBE FEEDING. 25ML\HR. FLUSHED WITH 50CC FIRST. PT TOLERATED WELL.
--- NOTE | 2017-11-14 16:12 | NUR ---
RODOLFO DYSARTHRIA ASSESSMENT COMPLETED TODAY. ST ARRIVED, PT LAYING IN BED JUST HAVE STARTED FIRST ENTERAL FEEDING. SHE SAID SHE IS COMFORTABLE AND HAPPY TO BE STARTED FEEDING. SPENT APPROXIMATELY 10 MINUTES DISCUSSING SWALLOWING REHABILITATION PLAN AND HOW FROM A DYSPHAGIA AND INSTRUCTOR KINDERGARTEN PERSPECTIVE, HER PEG FEEDINGS ARE ANTICIPATED TO BE SHORT TERM WHILE SHE REHABILITATES SWALLOW. SILVANA SHOWS SDTRONG REHABILITATION POTENTIAL BASED ON PRESENTATION ON VFSS WHICH WITH ASPIRATION EVENTS OCCURING DUE TO DELAYED INITATION OF PHARYNGEAL SWALLOW RATHER THAN GROSS WEAKNESS OR IMPAIRMENT. SHE ALSO DEMONSTRATES GOOD PARTICIPATION IN [place], PROGRESSION DURING ORAL TRIALS SINCE FIRST ST VISIT ON 11-10-17, AND STRONG COGNITIVE AND LANGUAGE SKILLS. FORMAL APHASIA AND COGNITIVE EVALUATION HAS YET TO BE COMPLETED DUE TO SEVERITY OF DYSPHAGIA AND DYSARTHRIA, BUT INFORMAL ASSESSMENT BY THIS CLINICIAN REVEALS NO CONCERNS FOR COGNITION OR EXPRESSIVE/RECEPTIVE LANGUAGE AT THIS TIME. THIS CLINICIAN PLANS TO EVALUATE THESE DOMAINS AT LATER DATE. FDA-2 DYSARTHRIA ASSESSMENT COMPLETED. PTS INTELLIGIBILITY HAS IMPROVED SIGNIFICANTLY SINCE INITIAL PRESENTATION. SILVANA CONTINUES TO PRESENT WITH SEVERELY IMPAIRED VOLITIONAL COUGH, SWALLOW, PALATE MOVEMENT (NO SPREAD/ELEVATION PERCEIVED BILATERALLY), MODERATELY-SEVERELY IMPAIRED RESPIRATION IN SPEECH, LIP SEAL, LARYNGEAL PITCH, SUSTAINED PHONATION (MAX OF 5.8 SECONDS, AVG OF 4.2 SECONDS), REDUCED VOLUME AND PITCH CONTROL. DYSARTHRIC SPEECH IS MOST NOTICBLY PERCEIVED ON BILABIALS. VOWELS ARE RATED TO BE GROSSLY INTACT. LINGUAL PHONEMES ARE MILD-MODERATELY DISTORTED, WITH INTELLIGIBILITY LARGELY DEPENDENT ON BREATH SUPPORT AND CONTROL PER UTTERANCE. PT GIVEN BREATH SUPPORT AND LABIAL STRENTHENING EXERCISES AND ENCOURAGED TO CONTINUE DRY SWALLOW EXERCISES PROVIDED. SILVANA WOULD BENEFIT GREATLY FROM AGGRESSIVE INPATIENT REHABILIATION. IT IS ANTICIPATED THAT SHE WOULD PERFORM WELL DUE TO STRONG COGNITIVE-LINGUISTIC SKILLS AND PRESENTATION OF DYSPHAGIA/DYSARTHRIC DEFICITS. THIS CLINICIAN WOULD NOT RECOMMEND SWING BED FOR THIS PATIENT DUE TO LIMITED INSTRUCTOR KINDERGARTEN STAFF CURRENTLY AT OUR FACILITY
--- NOTE | 2017-11-14 17:16 | NUR ---
PT CALLED FOR BEEPING PUMP AND LOST REMOTE. LOCATED. PT DENIES FURTHER CONCERNS. HAS BROTHER IN ROOM VISITING.
--- NOTE | 2017-11-14 17:52 | NUR ---
VITALS AND I/OS CHARTED. CALL LIGHT IN REACH. VISITOR IN ROOM FELIZ EMPTIED
--- NOTE | 2017-11-14 18:00 | NUR ---
PT WORKED WITH RESTORATIVE COORDINATOR. TODAY. SHOWED SOME IMPROVEMENT WITH MOVEMENT AND GRASP. TOLERATING FEEDING AT 25MLS\HR. INCREASE EVERY 8 HOURS BY 10MLS UNTIL AT [employer] OF 60MLS\HR. CHECK RESIDUAL BETWEEN. FLUSH IWTH 50MLS TAP WATER TID. FELIZ IN PLACE. REPOSITION Q2. PIVOTS TO RIGHT SIDE WELL TO BSC. USES 4PT CANE.
--- NOTE | 2017-11-14 21:33 | NUR ---
CHARGE NURSE ROUNDING NOTE:, IN BED, HELPS WITH REPOSITIONING, IVF INFUSINF W/O PROBLEMS, PEG TUBE PATENT, INFUSING W/O PROBLEMS. ASPIRATION PRECAUTIONS IN PLACE, HOB ELEVATD 30o,NPO FAMILY IN ROOM, NO REQUESTS
--- NOTE | 2017-11-14 23:32 | NUR ---
PATIENT RESTING QUIETLY. TUBE FEEDING RESIDUAL WAS 0, PATIENT'S PEG TUBE FLUSHED WITH 50MLS WATER AND THEN INCREASED TO 35MLS AN HOUR. PATIENT'S EYES CLOSED, RESPIRATIONS EVEN AND REGULAR, SATS 97% ON 2LNC. CALL LIGHT IN REACH.
--- NOTE | 2017-11-15 00:28 | NUR ---
PATIENT FELT LIKE SHE NEEDED TO HAVE A BOWEL MOVEMENT SO SHE WAS ASISSTED WITH 2 PERSON ASSIST TO PIVOT TRANSFER TO HER RIGHT SIDE ONTO THE BEDSIDE COMMODE. PATIENT HAD NO BM AND WAS HELPED BACK INTO BED AND REPOSITIONED. CALL LIGHT IN REACH. HEAD OF BED AT 35 DEGREES.
--- NOTE | 2017-11-15 03:18 | NUR ---
PATIENT POSITION CHANGED TO RT SIDE, PATIENT PULLED UP IN BED. NO C/O PAIN. FELIZ STILL DRAINING WELL. PATIENT PULLED UP IN BED WITH HEAD ELEVATED GREATER THAN 30 DEGREES. NO C/O PAIN. PATIENT SAYS SHE IS WARM ENOUGH. CALL LIGHT IN REACH.
--- NOTE | 2017-11-15 04:59 | NUR ---
PATIENT RESTING QUIETLY SUPINE WITH HER HEAD ELEVATED TO OVER 30 DEGREES. PATIENT REMAINS ON 2LNC AND O2 SATS=97% ON 2L/NC. HR=70 FELIZ STILL DRAINING. EYES CLOSED,RESPIRATIONS, EVEN AND REGULAR.CALL LIGHT IN REACH.
--- NOTE | 2017-11-15 06:19 | NUR ---
PATIENT APPEAR TO HAVE A PRETTY GOOD NIGHT. PATIENT HAD TO BE PULLED UP AND REPOSITIONED MULTIPLE TIME THIS SHIFT TO KEEP HER HEAD ELEVATED GREATER THAN 30 DEGREE. DID NOT REQUIRE ORAL SUCTIONING LAST NIGHT. TUBE FEEDINGS HAVE INCREASED X 2 THIS SHIFT. FIRST PART OF THE SHIFT 25MLS AN HOUR WAS RUNNING . 8HOURS AFTER DAY SHIFT STARTED IT, IT WAS INCREASED AFTER NO RESIDUAL AND 50ML WATER FLUSH TO 35MLS/HR. CHECKED AGAIN JUST AFTER 6AM AND AGAIN NO RESIDUAL, 50ML WATER FLUSH GIVEN, AND TUBE FEEDING INCREASED TO 45MLS/HR. PATIENT SEEMS TO BE TOLERATING IT WELL. WOULD LIKE TO SEE THIS CHANGED TO BOLUS FEEDINGS THROUGHOUT THE DAY NOT CONTINOUS FEEDINGS. WILL DISCUSS THIS WITH DAY SHIFT RN. PATIENT DID PIVOTR TRANSFER TO THE COMMODE TO TRY AND HAVE A BM ONCE LAST NIGHT WITH NO RESULTS. PATIENT REMAINS IN BED ON 2L/NC TO KEEP SATS UP WHILE SLEEPING AND POSITIONED AT HIGHER THAN 30 DEGREES. CALL LIGHT IN REACH.
--- NOTE | 2017-11-15 08:30 | NUR ---
pt called to say she felt she needed to unrinate, but pt has a murdock. when I checked pt's murdock she was leaking urine. I informed her nurse
--- NOTE | 2017-11-15 08:40 | NUR ---
PATIENT FELIZ CATHATER BALLOON DEFLATED AND CATHATER TUBE READJUSTED THEN REINFLATED. PATIENT LINEN CHANGED.
--- NOTE | 2017-11-15 09:26 | NUR ---
ASPIRIN PUSHED PER PEG TUBE WITH 3O MLS OF WATER. PATIENT HAS NO C/O PAIN OR NEEDS AT THIS TIME. SHE REMAINS IN BED WITH HOB ELEVATED.
--- NOTE | 2017-11-15 09:53 | NUR ---
pt was transfered to chair via two person manual lift, by Nurse Valdez and PATIENCE Reinoso. pt is sitting up safely with feet elevated and call light in reach. pt did not need anything else at the moment
--- NOTE | 2017-11-15 10:01 | NUR ---
PATIENT PIVOT TRANSFER TO THE CHAIR FROM THE BED WITH 2 PERSON ASSIST. PATIENT ABLE TO STAND AND TRANSFER WELL WITH ASSIST.
--- NOTE | 2017-11-15 10:09 | NUR ---
PATIENT WORKING WITH PHYSICAL THERAPY AT THIS TIME.
--- NOTE | 2017-11-15 11:29 | NUR ---
PATIENT TUBE FEEDING CHANGED AT THIS TIME BY DOCTOR JAY, THE REST OF THE TUBE FEED IN THE BAG BOLUS FED APROX 70 MLS AND THEN FLUSHED WITH 50MLS OF WATER.
--- NOTE | 2017-11-15 13:34 | NUR ---
BOLUS FED PATIENT 200MLS OF H2O AT THIS TIME, NO RESIDUAL PULLED FROM THE PEG TUBE PRIOR TO PUSHING THE WATER. PATIENT TOLERATED THE WATER WITHOUT ANY TROUBLE.
--- NOTE | 2017-11-15 14:23 | NUR ---
pt was resting in bed safely but asked to get up to the chair. PATIENCE Reinoso helped me transfer pt to chair. pt is now sitting up in chair with call light in reach.
--- NOTE | 2017-11-15 15:32 | NUR ---
bolus tube feeding given at this time, 10mls of residual pulled from the peg tube prior to bolus feed. patient tolerated the feed well. iv saline locked at this time
--- NOTE | 2017-11-15 17:28 | NUR ---
pt is resting in bed with call light in reach. pt did not need anything at the moment
--- NOTE | 2017-11-15 18:11 | NUR ---
TUBE FEEDING COMPLETED AND NO RESIDUAL PULLED FROM THE PEG TUBE. PATIENT MEDICATION CRUSHED AND PLACED VIA PEG TUBE
--- NOTE | 2017-11-15 18:27 | NUR ---
PATIENT REQUESTED TO HAVE HER FELIZ CATHATER LEFT IN [facility] DOCTOR BHARATH NOTIFIED AT THIS TIME. PATIENT TX TO THE COMMODE AND HAD A LARGE FORMED BM, LAURENT CARE DONE.
--- NOTE | 2017-11-15 20:35 | NUR ---
PATIENT RESTING QUIETLY SUPINE WITH HEAD OF BED ELEVATED ABOVE 30 DEGREES CALL LIGHT IN REACH. PT WATCHING TV AND VISITING WIT VISITORS. EVENING MEDS GIVEN, NO RESIDUAL, 200MLS WATER PER PEG TUBE GIVEN. PATIENT GOT 1 UNIT OF INSULIN FOR HER BLOOD SUGAR COVERAGE. PATIENT HAVINF NO PAIN AT THIS TIME. WILL BE BACK TO GIVE TUBE FEED. CALL LIGHT IN REACH.
--- NOTE | 2017-11-15 21:30 | NUR ---
CHARGE NURSE ROUNDING NOTE:, PT AWAKE, VISITING WITH FAMILY. HOB ELEVATED 30o, ASPIRATION PRECAUTIONS IN PLACE, PEG TUBE PATENT, F/C PATENT, CONTINUES TO HAVE LEFT SIDED DEFICIT. PT HAS WEAK COUGH AND POOR SWALLOW/GAG REFLEXES, USES YAUNKER TO DO SELF ORAL SUCTIONS. NPO, NO C/O PAIN, CALL LIGHT WITHING HANDS REACH
--- NOTE | 2017-11-15 21:59 | NUR ---
PATIENT RESTING QUIETLY AT THIS TIME HEAD ELEVATED GREATER THAN 30 DEGREES, EYES CLOSED RESPIRATIONS REGULAR AND EVEN. CALL LIGHT IN REACH.
--- NOTE | 2017-11-15 22:31 | NUR ---
237MLS JEVITY 1.5 INGE FEEDING GIVEN PER GRAVITY AFTER MINIMAL RESIDUAL CHECKED, THEN FLUSHED WITH 50MLS TAP WATER. PATIENT HAS NO COMPLAINTS OF PAIN. RESTING QUIETLY, EYES CLOSED, RESPIRATION EVEN. CALL LIGHT IN REACH.
--- NOTE | 2017-11-15 23:48 | NUR ---
PATIENT RESTING QUIETLY ON HER LEFT SIDE, RESPIRATIONS EVEN AND REGULAR, EYES CLOSED. CALL LIGHT IN REACH.
--- NOTE | 2017-11-16 00:41 | NUR ---
PATIENT CALLED AND HAD US PULL HER UP IN BED AND REPOSITION HER TO HER RT SIDE. PATIENT RELAXING QUIETLY NOW.
--- NOTE | 2017-11-16 03:03 | NUR ---
PATIENT GIVEN HER SECOND JEVITY FEEDING PER PEG-TUBE THIS SHIFT TO GRAVITY AND TOLERATED IT WELL. FLUSHED ON EITHER SIDE WITH 50ML TAP WATER. PATIENT RESTING QUIETLY, EYES CLOSED, ON HER LEFT SIDE PER HER REQUEST, RESPIRATIONS REGULAR AND EVEN, FELIZ DRAINING, O2 SATS 93% ON RA AND HR=64 PER PULSE OX. CALL LIGHT IN REACH AND HEAD OF BED ELEVATED ABOVE 30 DEGREES.
--- NOTE | 2017-11-16 04:24 | NUR ---
PATIENT CALLED TO BE REPOSITIONED. TURNED BACK ONTO HER BACK AT HER REQUEST AND PILLOWS PLACED UNDER HER ARMS AND LEGS. FELIZ STAT LOCK REPLACED. PATIENT COMFORTABLE AT THIS TIME AND GOING TO TRY AND GO BACK TO SLEEP. CALL LIGHT IN REACH.
--- NOTE | 2017-11-16 06:37 | NUR ---
PATIENT REPOSITIONED FREQUENTLY THROUGHOUT THE NIGHT. JEVITY TUBE FEEDINGS X 3 TO GRAVITY THROUGH THE NIGHT AND TOLERADED THIS WELL THROUGH THE PEG TUBE ALONG WITH THE FLUSHES. BOTH IV SITES STILL FLUSH WELL AND ARE WNL. BOWEL TONES ARE STILL ACTIVE AND HAS HAD 1 LIQUID/SOFT FOUL SMELLING STOOL. FELIZ IS STILL DRAINING, BUT DECREASED TO 30MLS AN HOUR FOR THE LAST 4 HOURS. PATIENT'S LUNG SOUNDS ARE STILL COURSE BILAT, WITH DEMINISHED BASES BILAT AND EXP WHEEZE IN THE UPPER LUNG SAENZ BILAT.PATIENT HAS SUCTIONED HER OWN MOUTH WHEN NEEDED AND IS ABLE TO USE THE NURSE CALL LIGHT ON THE BED WHEN NEEDED. PATIENT CURRENTLY RESTING AND REQUESTED SHADES BE PULLED AND IS TRYING TO GET SOME MORE SLEEP. CALL LIGHT AND SUCTION IN REACH.
--- NOTE | 2017-11-16 06:37 | NUR ---
up to bsc, had loose yellow colored bm. lauri care done, f/c patent, Back to bed using 2 person assist and 4 prong cane
--- NOTE | 2017-11-16 08:00 | NUR ---
PT AWAKE IN BED. ALERT AND ORIENTED. SPEECH SLOW TO RESPOND AND SLIGHTLY SLURRED, NOT A NEW FINDING. LEFT ARM FLACCID, LEFT LEG VERY WEAK BUT SOME MOVEMENT NOTED. PEG TUBE IN PLACE, DRESSING CDI, NO REDNESS OR DRAINAGE NOTED AT INSERTION SITE. FELIZ IN PLACE PUTTING OUT CLEAR YELLOW URINE. PT DENIES PAIN OR NAUSEA. CALL LIGHT WITHIN REACH.
--- NOTE | 2017-11-16 10:45 | NUR ---
AM FREE WATER AND TUBE FEED ADMINISTERED. FLUSHES WELL. PT TOLERATED FEEDING WELL. DENIED BLOATING, NAUSEA, OR DISCOMFORT. PY SITTING IN BED, HOB GREATER THAN 3O DEGREES.
--- NOTE | 2017-11-16 13:10 | NUR ---
PT SITTING UP IN BED WATCHING TV. FAMILY AT BEDSIDE. DENIES NEEDS OR CONCERNS A THIS TIME. CALL LIGHT WITHIN REACH.
--- NOTE | 2017-11-16 17:32 | NUR ---
PT SHOWERED WITH ASSITANCE OF [employer] MANAGER. LINENS CHANGED. PT 2 PA TO TRANSFER FROM BED TO BATHROOM AND BACK. PT BACK IN BED AFTER SHOWER, WANTING TO REST. CALL LIGHT WITHIN REACH.
--- NOTE | 2017-11-16 19:05 | NUR ---
BEDSIDE REPORT RECEIVED FROM OFFGOING RN. PT DENIES NEEDS AT THIS TIME. CALL LIGHT WITHIN REACH.
[2017-11-16] MEDS ORDERED: LIPITOR80 MG PT (20:27)
[2017-11-16] MEDS ORDERED: IRBESARTAN300 MG PT (20:27)
[2017-11-16] MEDS ORDERED: ACETAMINOP160 MG/54 PT (20:28)
[2017-11-16] MEDS ORDERED: ASPIRIN81 MG PT (20:28)
[2017-11-16] MEDS ORDERED: GLIPIZIDE5 MG PT ×2 (20:30)
[2017-11-16] MEDS ORDERED: VITAMIN B-12500 MCG PT (20:31)
[2017-11-16] MEDS ORDERED: VITAMIN D3500 UNIT/5 PT (20:32)
[2017-11-16] MEDS ORDERED: JEVITY 1.5 CAL237 ML PT (20:33)
[2017-11-16] MEDS ORDERED: DESENEX43 GM TOP (20:40)
--- NOTE | 2017-11-16 21:09 | NUR ---
JEVITIY FEEDING ADMINISTERED WITH 50 ML FLUSH BEFORE AND AFTER. PT TOLERATED WELL. PT ASSESSMENT COMPLETE. LUNGS SOUNDS COARSE THROUGHOUT, DO NOT CLEAR WITH COUGH. BT'S ACTIVE. PT REPORTS FEELING "GASSY". L SIDED FACIAL DROOP PRESENT. PT ABLE TO SQUEEZE MY FINGERS WITH L HAND, FLEX AND EXTEND L FOOT. SENSATION TO L EXTREMITIES INTACT. FELIZ CATH PATENT, CLEAR YELLOW URINE PRESENT. PT DENIES OTHER NEEDS AT THIS TIME. CALL LIGHT WITHIN REACH.
--- NOTE | 2017-11-16 22:45 | NUR ---
PT UP ON COMMODE WITH OTHER RN ASSISTANCE. PT ASSISTED BACK TO BED. HAD BM. FREE WATER ADMINISTERED ORDERED THROUGH PEG TUBE. PT TOLERATED WELL. DENIES OTHER NEEDS AT THIS TIME. CALL LIGHT WITHIN PT REACH.
--- NOTE | 2017-11-16 22:57 | NUR ---
CHARGE NURSE ROUNDING NOTE: INCONTINENT OF LOOSE BOWEL, CHANGED, LAURENT CARE DONE, F/C PETENT. COMPLETE BED LINEN, GOWN AND ATTENDS CHANGED. LEFT SIDED WEAKNESS STILL PRESENT, HELPS WITH TURNING
--- NOTE | 2017-11-16 23:36 | NUR ---
ASSISTED PATIENT TO THE BEDSIDE COMMODE. CHANGED LINEN X 3. PATIENT IS BACK IN BED. CALL LIGHT IN REACH.
--- NOTE | 2017-11-17 00:29 | NUR ---
JEVITY FEEDING ADMINISTERED. PT RESTING IN BED WITH EYES CLOSED THROUHGOUT FEEDING. TOLERATED WELL. DRESSING SURROUNDING PEG TUBE SITE CONTINUES TO HAVE SANGUINEOUS SHADOWING PRESENT. CALL LIGHT WITHIN PT REACH.
--- NOTE | 2017-11-17 02:29 | NUR ---
PATIENT ASKED TO BE REPOSITIONED IN BED AND THIS WAS DONE, PATIENT PULLED UP AND TO HER LEFT SIDE. 200 AM TF AND FREE WATER FLUSH WAS COMPLETED WELL 2 AM BLOOD SUGAR WITH 5 UNITS SLIDING SCALE COVERAGE. PATIENT READY TO GO BACK TO SLEEP. LIGHTS TURNED OUT AND CALL LIGHT IN REACH.
--- NOTE | 2017-11-17 04:02 | NUR ---
PT ASSESSMENT COMPLETE. PT DENIES PAIN, NAUSEA, SOB. PT REPORTS BEING TOO HOT. SHEET COVERING LEGS ONLY. LUNG SOUNDS WITH RHONCI TO R. CLEAR WITH COUGH. PT REPORTS ABD TENDERNESS. BT'S ACTIVE. R SIDED FACIAL DROOP REMAINS PRESENT. PT ABLE TO LIGHTLY SQUEEZE WRITERS FINGERS WITH L HAND WHEN PROMPTED. ABLE TO FLEX AND EXTEND L FOOT AGAINST WRITERS HAND. FELIZ CATH REMAINS PATENT, DRAINING CLEAR YELLOW URINE. PT DENIES OTHER NEEDS AT THIS TIME. CALL LIGHT WITHIN REACH.
--- NOTE | 2017-11-17 08:15 | NUR ---
UPDATED NOTES FAXED TO [facility].
--- NOTE | 2017-11-17 10:00 | NUR ---
[facility] CALLED. SPOKE WITH ADALI. THEY ARE DECLINING PATIENT AT THIS TIME. PATIENT IS NOT READY THEY FEEL TO TOLERATE 3-4 HOURS DAILY REHAB. THEY SUGGEST SHE GO TO SNF, AND REASSESS LATER DATE FOR THEIR INPATIENT PROGRAM SHE PROGRESSES. UPDATED STAFF AND DR SINHA. SPOKE WITH MIKE AT [facility]. UPDATED CLINICALS FAXED TO THEM, FAX CONFIRMATION RECEIVED. SPOKE WITH PATIENT IN ROOM. SHE UNDERSTANDS SHE HAS BEEN DECLINED AT [facility]. SHE AGREES TO GO TO [facility] IN [place]. SHE UNDERSTANDS TODAY MAY BE DISCHARGE TO SNF.
--- NOTE | 2017-11-17 10:13 | NUR ---
PT SHOWERED WITH ASSISTANCE BY NELLI MORIN. PEG TUBE DRESSING HAD SOME RED DRAINAGE AND WAS WET SO CHANGED BY THIS RN, REDRESSED WITH DRAIN SPONGE, GAUZE AND TAPE, PT JR WELL. PEG TUBE REMAINS SECURELY IN PLACE. PT 2PA WITH CAN TO TRANSFER TO BED FROM SHOWER CHAIR. HOB ELEVATED AT 45 DEGREES, PILLOWS UNDER EACH ARM AND KNEES. CALL LIGHT WITHIN REACH.
--- NOTE | 2017-11-17 11:15 | NUR ---
ORDERS, PASSR FAXED TO [facility]. FAX CONFIRMATION RECEIVED. SPOKE WITH ADMINISTRATIVE ASSOCIATE MIKE.
[2017-11-17] MEDS ORDERED: HUMULIN R100 UNIT/1 SUB-Q (12:15)
--- NOTE | 2017-11-17 12:45 | NUR ---
SPOKE WITH MIKE AT [facility]. SHE STATES NURSING IS LOOKING THROUGH ORDERS. SHE WILL CALL WHEN AUTHORIZATION IS OBTAINED FROM INSURANCE AND TRANSPORT CAN BE ARRANGED.
--- NOTE | 2017-11-17 13:07 | NUR ---
PT RESTING IN BED, ALERT AND RESPONSIVE TO ME. SHE TOLD ME SHE IS GOING TO [facility] AND I ENCOURAGED HER TO VIEW [facility] A TOOL TO USE TO GET TO WHERE SHE WANTS TO BE[facility]! I AM ABLE TO UNDERSTAND ALL PT SAYS, REQUESTED PRAYER, WILL FOLLOW NEEDED
--- NOTE | 2017-11-17 13:55 | NUR ---
SPOKE WITH PATIENT IN ROOM. PATIENTS MOTHER ALSO PRESENT. PATIENT IS WORKING WITH OT. DISCUSSED THAT WE SHOULD HEAR SOON FROM FACILITY REGARDING INSURANCE AUTHORIZATION AND TRANSPORTATION. THEY STATE UNDERSTANDING.
--- NOTE | 2017-11-17 14:20 | NUR ---
[facility]. AUTHORIZATION HAS BEEN OBTAINED AND THEY ARE SENDING TRANSPORTATION FOR PATIENT. STAFF UPDATED.
--- NOTE | 2017-11-17 14:30 | NUR ---
FREE WATER AND JEVITY ADMINISTERED THROUGH PEG TUBE AT THIS TIME. PT JR WELL. DENIED NAUSEA OR ANY OTHER DISCOMFORT. PT BELONGINGS PACKED UP AND PT READY TO DC TO [facility]. FAMILY MEMBER WITH PT.
--- NOTE | 2017-11-17 15:00 | NUR ---
REPORT GIVEN TO TORITO AT [facility] VIA PHONE.
--- NOTE | 2017-11-19 15:50 | NUR ---
RECIEVED A MESSAGE FROM DR SINHA REGARDING THIS PT. PT SISTER CALLED AND REPORTEDLY MENTIONED SEVERAL DIFFERENT COMPLAINTS ABOUT [facility] AND THE CARE OF HER SISTER AND WANTING TO GET HER MOVED OUT OF THIS FACILITY. AFTER TALKING WITH DR SINHA I CALLED [facility] AND SPOKE WITH ROXANA, EXPLAINING MUCH I COULD WITH HER REGARDING WHAT I WAS TOLD. WE THOUGHT IT WOULD BE BETTER FOR [facility] TO HANDLE THE COMPLAINTS AND THEN IF NECESSARY THEY COULD ASSIST WITH GETTING THE PT INTO A NEW FACILITY.
== END 2017-11-17 14:55 | DRG 65 ==
LOC: ED 10:13 → MS 13:04
PROVIDERS: Surgery; ADMIT Internal Medicine
PROC: 0DH63UZ Insertion of Feeding Device into Stomach, Percutaneous Approach (ICD-10-PCS; principal; 2017-11-13 12:45)
DX: I63.511 Cerebral infarction due to unspecified occlusion or stenosis of right middle cerebral artery (principal); G81.94 Hemiplegia, unspecified affecting left nondominant side; R29.810 Facial weakness; R47.01 Aphasia; R13.12 Dysphagia, oropharyngeal phase; R47.1 Dysarthria and anarthria; R05 Cough; F15.10 Other stimulant abuse, uncomplicated; F17.200 Nicotine dependence, unspecified, uncomplicated; F43.10 Post-traumatic stress disorder, unspecified; R29.710 NIHSS score 10; E11.65 Type 2 diabetes mellitus with hyperglycemia; I10 Essential (primary) hypertension; E78.5 Hyperlipidemia, unspecified; J45.909 Unspecified asthma, uncomplicated; E04.1 Nontoxic single thyroid nodule; Z88.1 Allergy status to other antibiotic agents; Z88.2 Allergy status to sulfonamides; Z82.3 Family history of stroke; Z91.14 Patient's other noncompliance with medication regimen; Z79.899 Other long term (current) drug therapy; Z79.84 Long term (current) use of oral hypoglycemic drugs; Z79.51 Long term (current) use of inhaled steroids
CPT/HCPCS: 36415; 51702; 70450; 70496; 70498; 71045; 74230; 80053; 80061; 81001; 83036; 84484; 85025; 85610; 85730; 92522; 92526; 93005; 93010; 93306; 94640; 94660; 94762; 97110; 97112; 97116; 97163; 97166; 97530; 97535; 99285; J0456; J0690; J1650; J1815; J1885; J2060; J2250; J2370; J2704; J7030; Q9967

== ENCOUNTER 2021-03-09 06:30 | Day surgery (SDC) | payer OTHER ==
[~2021-03-09] VITALS: Ht 160 cm; Wt 107.5 kg
[~2021-03-09 06:30] MED LIST: ACETAMINOP160 MG/54 PT; ALLEGRA ALLERG180 MG PT; ARTHRITIS PAIN100 GM; ASMANEX220 MCG INH; ASPIRIN81 MG PT; AVAPRO150 MG PO; COREG6.25 MG PO; CRESTOR10 MG PO; DESENEX43 GM TOP; DIALYVITE V5000 UNIT PO; FLONASE ALLERG9.9 ML NAS; GLIPIZIDE XL10 MG PO; GLIPIZIDE5 MG PT; HUMULIN R100 UNIT/1 SUB-Q; IRBESARTAN300 MG PT; JEVITY 1.5 CAL237 ML PT; LANTUS SOL100 UNIT/1 SUB-Q; LIPITOR20 MG PO; LIPITOR80 MG PT; NOVOLOG FL100 UNIT/1 SUB-Q; OZEMPIC1 MG/0.71 SQ; SINGULAIR10 MG PO; TERBINAFINE HC250 MG PO; VITAMIN B-12500 MCG PT; VITAMIN D3500 UNIT/5 PT; ZOLOFT100 MG PO
--- NOTE | 2021-03-09 08:02 | NUR ---
03/09/21 0802 Dottie Cordova 0758- PT ARRIVES TO PACU NONAROUSABLE TO NOXIOUS STIMULI WITH AN OPA AND A NPA IN PLACE. RESP EVEN AND UNLABORED. OXYGEN SAT HIGH 90'S ON 10L VIA MASK.
--- NOTE | 2021-03-09 11:59 | NUR ---
PT ALERT, ORIENTED AND HERE FOR HER FIRST SCOPE. SEEMED TO COPE WELL WITH PREP BELLMAN WAITING, GAVE BLESSING WILL FOLLOW NEEDED
--- NOTE | 2021-03-09 12:51 | OR ---
[facility] [address], [place] [address] Signed DATE OF OPERATION: 03/09/2021 SURGEON: Murray Louie MD PROCEDURE: Colonoscopy. PREOPERATIVE DIAGNOSIS: Guaiac-positive stool. POSTOPERATIVE DIAGNOSES: 1. Ncxodrc-yp-mgrfzxvi sigmoid diverticulosis. 2. Blkxjjn-hy-itfzoljw internal hemorrhoids. 3. A 5 mm polyp at 12 cm/rectum. 4. A 4 mm polyp at 25 cm. 5. A 4 mm polyp at 100 cm. 6. A 6 mm polyp at 90 cm. 7. A 5 mm polyp at 27 cm. PROCEDURE: Colonoscopy with hot biopsy. ESTIMATED BLOOD LOSS: None. INDICATIONS: Charlene is a 55-year-old obese diabetic female, asked to see me for a colonoscopy. She had uncontrolled medical issues several years ago and end up with a fairly significant stroke. She has been going through rehab and learning to walk again. Now, that she is getting back to her new baseline. Her primary care provider wanted her to present for endoscopy. She gave a stool sample and that was guaiac positive. No previous colonoscopy. No family history of colon cancer or polyps. No specific lower GI complaints. In the office, I gave her a pamphlet on colonoscopy. We looked at that together along with the risks including, but not limited to gas bloating, crampy abdominal pain, bleeding, perforation requiring surgery, and missed diagnosis. Also, due to her body mass index, very round heavy face, thick neck, heavy chest and abdomen, and medical issues, we asked that an anesthesia provider help us with increased monitoring sedation with propofol. That proved to be a very santiago decision today. She had expressed understanding and wished to proceed. Electronically Signed By: MURRAY LOUIE MD 03/09/21 1251 PATIENT NAME: CHARLENE VICTOR OPERATIVE REPORT DATE OF : 61 REPORT #: [id number] PHYSICIAN: MURRAY LOUIE MD P[facility]: [facility] REPORT IS CONFIDENTIAL AND NOT TO BE RELEASED WITHOUT AUTHORIZATION [facility] [address], [place] [address] Signed DESCRIPTION OF PROCEDURE: Charlene was taken into our endoscopy suite and placed in the left lateral decubitus position. She was given propofol and monitored anesthesia care per our nurse textile converter. Digital rectal exam was performed and she had good sphincter tone, no masses. The adult colonoscope was introduced and advanced all around into the cecum under direct visualization of camera without difficulty. She did take a little extra propofol, and she was frequently apneic requiring airway control by her nurse textile converter. Her prep was quite good. We could easily see the appendiceal orifice and ileocecal valve. The scope was then slowly withdrawn. The above-mentioned polyps were easily removed with the help of hot biopsy forceps. She does have diverticula in the sigmoid colon. They were moderate in size, baonkum-aj-qxckpgti in number, and scattered about. Once in the rectum, the scope had been retroflexed and she does have kjsbkxp-ec-cmffdbxa internal hemorrhoids. After this, the gas was suctioned out. The colonoscope removed. Charlene tolerated the procedure quite well. RECOMMENDATIONS: I will see Charlene back in my office in 7 to 14 days to review her results. She might consider repeat colonoscopy in three years, but certainly no more than five. MD BHUMI Osborne/SLAVAL /[id number] cc: MD [facility] MD Ivan Polk MD Copies: MURRAY LOUIE MD [facility] ESCALANTE MD Electronically Signed By: MURRAY LOUIE MD 03/09/21 1251 PATIENT NAME: CHARLENE VICTOR OPERATIVE REPORT DATE OF : 61 REPORT #: [id number] PHYSICIAN: MURRAY LOUIE MD PCP: [facility] REPORT IS CONFIDENTIAL AND NOT TO BE RELEASED WITHOUT AUTHORIZATION [address] [address] Signed IVAN FITZGERALD MD ~ Electronically Signed By: MURRAY LOUIE MD 03/09/21 125 PATIENT NAME: CHARLENE VICTOR OPERATIVE REPORT DATE OF : 61 REPORT #: [id number] PHYSICIAN: MURRAY LOUIE MD PCP: [facility] REPORT IS CONFIDENTIAL AND NOT TO BE RELEASED WITHOUT AUTHORIZATION
--- NOTE | 2021-03-12 16:08 | PATH ---
[facility] [address], [place] [address] Signed SPECIMEN(S): A RECTAL POLYP AT 12 CM SPECIMEN(S): B COLON POLYP AT 25 CM SPECIMEN(S): C COLON POLYP AT 100 CM SPECIMEN(S): D COLON POLYP AT 90 CM SPECIMEN(S): E COLON POLYP AT 27 CM SPECIMEN SOURCE: A. RECTAL POLYP AT 12 CM B. COLON POLYP AT 25 CM C. COLON POLYP AT 100 CM D. COLON POLYP AT 90 CM E. COLON POLYP AT 27 CM CLINICAL HISTORY: Guaiac test positive. Postop: Diverticulitis; polyps; internal hemorrhoids MICROSCOPIC DESCRIPTION: Histologic sections of all submitted blocks are examined by light microscopy. These findings, together with the gross examination, support the pathologic diagnosis. FINAL PATHOLOGIC DIAGNOSIS: A. Rectum, 12 cm, polypectomy: - Tubular adenoma. B. Colon, 25 cm, polypectomy: - Hyperplastic polyp. C. Colon, 100 cm, polypectomy: - Tubular adenoma. D. Colon, 90 cm, polypectomy: - Tubular adenoma. E. Colon, 27 cm, polypectomy: - Hyperplastic polyp. BRP:[facility]:C2NR GROSS DESCRIPTION: Five specimens are received in five containers, labeled "DC." A. The specimen, labeled "DC, 1," and designated on the requisition "rectum polypectomy 12 cm," is received in formalin and consists of two hernandez soft tissue fragments that measure 0.2 and 0.4 cm in greatest dimension. The specimen is entirely submitted in cassette (A1). B. The specimen, labeled "DC, 2," and designated on the requisition "colon polypectomy 25 cm," is received in formalin and consists of one hernandez soft tissue PATIENT NAME: SILVANA VICTOR PATHOLOGY DATE OF : 61 REPORT #: [id number] PHYSICIAN: ABRIL BRITO [facility] REPORT IS CONFIDENTIAL AND NOT TO BE RELEASED WITHOUT AUTHORIZATION [facility] [address] [place], [place] [address] Signed fragment that measures 0.5 cm in greatest dimension. The specimen is entirely submitted in cassette (B1). C. The specimen, labeled "DC, 3," and designated on the requisition "colon polypectomy 100 cm," is received in formalin and consists of two hernandez soft tissue fragments that measure 0.4 cm in greatest dimension. The specimen is entirely submitted in cassette (C1). D. The specimen, labeled "DC, 4," and designated on the requisition "colon polypectomy 90 cm," is received in formalin and consists of one hernandez soft tissue fragment that measures 0.5 cm in greatest dimension. The specimen is entirely submitted in cassette (D1). E. The specimen, labeled "DC, 5," and designated on the requisition "colon polypectomy 27 cm," is received in formalin and consists of two hernandez soft tissue fragments that measure less than 0.1 up to 0.3 cm in greatest dimension. The specimen is entirely submitted in cassette (E1). AI (under the direct supervision of a pathologist) The Gross Description was prepared using a voice recognition system. The report was reviewed for accuracy; however, sound-alike word errors, addition and/or deletions may occur. If there is any question about this report, please contact Client Services. PERFORMING LABORATORY: The technical component was performed by [facility], [address] [place] [id number] (Property Staff Accountant: Peggy Mott MD; CLIA# [id number]). Professional interpretation was performed by [facility], [facility], [address] [place] [id number] (CLIA# [id number]). Diagnostician: Poncho Morris MD Pathologist Electronically Signed 03/12/2021 Copies: ~ PATIENT NAME: SILVANA VICTOR PATHOLOGY DATE OF : 61 REPORT #: [id number] PHYSICIAN: ABRIL PATHOLOGY PCP: [facility] REPORT IS CONFIDENTIAL AND NOT TO BE RELEASED WITHOUT AUTHORIZATION
== END 2021-03-09 08:38 | disposition home or self-care (01) ==
LOC: OPS 06:30 → DS 06:30 → OPS 06:45 → DS 09:45 → OPS 09:45 → DS 10:45
PROVIDERS: ATTEND Colon & Rectal Surgery
PROC: 0DBE8ZX Excision of Large Intestine, Via Natural or Artificial Opening Endoscopic, Diagnostic (ICD-10-PCS; 2021-03-09)
PROC: 0DBP8ZX Excision of Rectum, Via Natural or Artificial Opening Endoscopic, Diagnostic (ICD-10-PCS; principal; 2021-03-09 06:45)
DX: D12.7 Benign neoplasm of rectosigmoid junction (principal); M19.90 Unspecified osteoarthritis, unspecified site; J45.909 Unspecified asthma, uncomplicated; E11.9 Type 2 diabetes mellitus without complications; E78.00 Pure hypercholesterolemia, unspecified; I10 Essential (primary) hypertension; H40.013 Open angle with borderline findings, low risk, bilateral; G47.33 Obstructive sleep apnea (adult) (pediatric); E66.01 Morbid (severe) obesity due to excess calories; G89.29 Other chronic pain; I69.359 Hemiplegia and hemiparesis following cerebral infarction affecting unspecified side; Z88.2 Allergy status to sulfonamides; Z87.891 Personal history of nicotine dependence; Z88.1 Allergy status to other antibiotic agents; Z91.030 Bee allergy status; Z91.013 Allergy to seafood; Z68.41 Body mass index [BMI] 40.0-44.9, adult; Z79.4 Long term (current) use of insulin
CPT/HCPCS: J2704; J7121